=== PATIENT | female | born 1975 | race Caucasian/White ===

== ENCOUNTER 2024-05-28 09:38 | Emergency (ER) | payer SELFPAY ==
[2024-05-28] VITALS (8 sets, daily range): BP systolic 104–167; BP diastolic 45–82; PULSE 66–81; RESP 13; TEMP 36.7; O2SAT 95–97; BMI 34.7
--- NOTE | 2024-05-28 09:54 | CT_ITS ---
FINAL REPORT TECHNIQUE: Axial CT images were performed through the head. Coronal reformatted images were submitted. This study was performed with techniques to keep radiation doses as low as reasonably achievable (ALARA). Individualized dose reduction techniques using automated exposure control or adjustment of mA and/or kV according to the patient's size were employed. CLINICAL HISTORY: headache left side of head x 3 days COMPARISON: None FINDINGS: The ventricles are normal in size. There is no evidence of hemorrhage. There is no mass or edema identified. There is no abnormal extra-axial fluid seen. The sinuses are well aerated. IMPRESSION: No acute intracranial process. Reviewed, Interpreted and Dictated by Minh Bridges MD Transcribed by Loida Flores Authenticated and . [facility]
[2024-05-28] MEDS: ACETAMINOPHEN 1,000MG/100ML VIAL 1000 MG IV (10:02)
[2024-05-28] MEDS: FAMOTIDINE 20MG/2ML VIAL 20 MG IV (10:03)
[2024-05-28] MEDS: KETOROLAC 30MG/ML VIAL 15 MG IV (10:03)
[2024-05-28] MEDS: METHYLPREDNISOLONE SOD SUCC 125MG VIAL 125 MG IV (10:03)
[2024-05-28] MEDS: diphenhydrAMINE 50MG/ML VIAL 25 MG IV (10:03)
[2024-05-28] MEDS: LACTATED RINGERS 1000ML 1,000 ML 999 ML IV (10:04)
[2024-05-28 10:05] LABS: Basophils # 0.1 K/mm3 (0-0.2); Basophils % 0.6 % (0.1-2.0); Eosinophils # 0.4 K/mm3 (0.0-0.4); Eosinophils % 2.8 % (0.1-12.0); Hematocrit 47.4 % (37.0-47.0); Hemoglobin 14.9 g/dL (12.2-16.2); Lymphocytes # 3.2 K/mm3 (0.7-4.5); Lymphocytes % 24.2 % (10-50); Mean Corpuscular HGB Conc 31.4 g/dL (31.8-35.4); Mean Corpuscular Hemoglobin 29.7 pg (27.0-31.2); Mean Corpuscular Volume 94.7 fl (81-99); Monocytes # 0.5 K/mm3 (0.1-1.0); Monocytes % 3.5 % (1.7-9.3); Platelet Count 399 K/mm3 (142-424); Red Cell Distribution Width 14.9 % (11.5-17.5)
[2024-05-28 10:11] LABS: Albumin Level 4.2 g/dl (3.5-5.0); Chloride 100 mmol/L (98-107); Potassium 3.8 mmoL/L (3.5-5.1); Sodium 137 mmol/L (136-145)
[2024-05-28 10:13] LABS: Blood Urea Nitrogen 13 mg/dl (7-17); Creatinine Clearance Estimated 173 mL/min (50-200); Estimated Glomerular Filt Rate 106 ml/min (>60); GFR (African American) 128 ML/MIN (>60)
[2024-05-28 10:14] LABS: Alanine Aminotransferase 33 U/L (12-78); Albumin/Globulin Ratio 1.2 (1.1-1.8); Alkaline Phosphatase 125 U/L (38-126); Anion Gap 10.8 mEq/L (5-15); Aspartate Amino Transferase 30 U/L (14-36); Bilirubin,Total 0.3 mg/dl (0.2-1.3); Calcium 9.3 mg/dl (8.4-10.2); Carbon Dioxide 30 mmol/L (22.0-30.0); Globulin 3.5 g/dL (1.3-3.2); Glucose 98 mg/dl (74-100); Total Protein,Serum 7.7 g/dl (6.3-8.2)
[2024-05-28 10:26] LABS: Coronavirus 19, PCR Not Detected (NotDetected); Influenza A, PCR Not Detected (NotDetected); Influenza B, PCR Not Detected (NotDetected)
--- NOTE | 2024-05-28 10:27 | ED_ITS ---
Discharge Plan Disposition Patient Disposition: Home, Self-Care Condition: Good Referrals Follow up/Referrals: Nilam Klein APRN [Primary Care Provider] - See instructions Activity Restrictions/Add. Instructions Additional Instructions/Restrictions: You were evaluated in the emergency department today. Please follow-up closely with your primary care provider. Return to the emergency department for new or worsening symptoms. Clinical Impressions Clinical Impression: Migraine Stand Alone Forms Stand Alone Forms: Work/School Release Instructions Patient Instructions: DI for Migraine, DI for Headache Print Language Print Language: Martiniquais Discharge ED Provider: Tena Loco General Adult HPI General Chief complaint: Headache Stated complaint: stabbing pains in head Time Seen by Provider: 05/28/24 09:59 Mode of Arrival: Ambulatory Source of Information: Patient Limitations: No Limitations Description of Symptoms (Recalled from ER Triage Doc. by RN): pt presents to ED with c/o headache ongoing for three days. symptoms located on left side of head, pt reports pain stabbing in nature. pt reports hx of migraines but none recently. History of Present Illness HPI narrative: This patient is a 48-year-old female with a history of migraines, obesity, tobacco use presenting to the emergency department for evaluation with concern for headache. Patient reports that she has had a headache on the left side of her head for about 3 days now. She describes it as a sharp stabbing pain. She reports history of migraines but has not had 1 in 15 years. She used to have them on the right side of her head similar to this. She denies any fevers, chills, sore throat, cough, congestion, neck pain or stiffness, vision changes, numbness, tingling, unilateral weakness, or other concerns. Nothing seems make it better or worse Related Data Allergies Allergy/AdvReac Type Severity Reaction Status Date / Time Sulfa (Sulfonamide Allergy Anaphylaxis Verified 05/28/24 09:53 Antibiotics) [facility] Disclaimer: The information contained in this section may have been updated after the patient was seen, as this information can be updated by other users. Social History Smoking Status: Current every day smoker alcohol intake: never current occupational status: employed Travel in the last 8 weeks: None ROS Obtained: Yes All systems reviewed & no additional complaints except as documented Physical Exam General General appearance: alert and in no apparent distress Head Head exam: atraumatic and normocephalic Eye Eye exam: Present normal appearance, PERRL and EOMI ENT ENT exam: Present normal exam, normal oropharynx, mucous membranes moist and normal external ear exam Neck Neck exam: Present normal inspection, full ROM and trachea midline; Absent tenderness Chest Chest inspection: Present normal inspection and symmetric chest wall rise; Absent tenderness Respiratory Respiratory exam: Present normal lung sounds bilaterally; Absent respiratory distress, wheezes, stridor or accessory muscle use Cardiovascular Cardiovascular exam: Present regular rate and normal rhythm Abdominal Exam Abdominal exam: Present soft; Absent distention, tenderness or guarding Extremities Exam Extremities exam: Present normal inspection, full ROM and normal capillary refill; Absent tenderness or edema Back Exam Back exam: Present normal inspection and full ROM; Absent tenderness Neurological Exam Neurological exam: Present alert, oriented X3, CN II-XII intact and normal gait; Absent motor sensory deficit Psychiatric Psychiatric exam: Present normal affect and normal mood Skin Skin exam: Present warm and dry Medical Decision Making Medical Records Medical records reviewed: Yes I reviewed the patient's medical records. Screening: Per USPSTF and CDC recommendations, given the prevalence of disease in our region, it is our hospital?s policy to screen for HIV and viral Hepatitis for all patients aged 18 and over and those with ongoing risk factors. Jamar Inquiry Pt receiving controlled substance: No Vital Signs: 05/28/24 09:43 05/28/24 09:44 05/28/24 10:00 Temperature 98.1 F Temperature Source Oral Pulse Rate 81 76 Pulse Rate [Left Radial] 80 Respiratory Rate 13 Blood Pressure 167/82 H 141/79 H Blood Pressure [Right Arm] 167/82 H Blood Pressure Mean [Right Arm] 110 02 Sat by Pulse Oximetry 97 97 96 Oxygen Delivery Method Room Air Room Air Room Air 05/28/24 10:30 05/28/24 11:00 05/28/24 11:30 Temperature Temperature Source Pulse Rate 76 72 66 Pulse Rate [Left Radial] Respiratory Rate Blood Pressure 144/82 H 104/45 L 110/57 L Blood Pressure [Right Arm] Blood Pressure Mean [Right Arm] 02 Sat by Pulse Oximetry 96 95 95 Oxygen Delivery Method Room Air Room Air Room Air 05/28/24 12:00 Temperature Temperature Source Pulse Rate 76 Pulse Rate [Left Radial] Respiratory Rate Blood Pressure 128/76 Blood Pressure [Right Arm] Blood Pressure Mean [Right Arm] 02 Sat by Pulse Oximetry 95 Oxygen Delivery Method Room Air Lab Data Lab results reviewed: Yes I reviewed the patient's lab results. Lab Results 05/28/24 09:51: WBC 13.0 H, RBC 5.00, Hgb 14.9, Hct 47.4 H, MCV 94.7, MCH 29.7, MCHC 31.4 L, RDW 14.9, Plt Count 399, MPV 8.0, Neut % (Auto) 69.0, Lymph % (Auto) 24.2, [place] % (Auto) 3.5, Eos % (Auto) 2.8, Baso % (Auto) 0.6, Neut # (Auto) 9.0 H, Lymph # (Auto) 3.2, [place] # (Auto) 0.5, Eos # (Auto) 0.4, Baso # (Auto) 0.1, Sodium 137, Potassium 3.8, Chloride 100, Carbon Dioxide 30, Anion Gap 10.8, BUN 13, Creatinine 0.60, Estimated Creat Clear 173, Estimated GFR 106, Est GFR ( Amer) 128, Glucose 98, Calcium 9.3, Total Bilirubin 0.3, AST 30, ALT 33, Alkaline Phosphatase 125, Total Protein 7.7, Albumin 4.2, Globulin 3.5 H, Albumin/Globulin Ratio 1.2, HIV 1&2 Antibody Rapid Nonreactive 05/28/24 10:16: SARS-CoV-2 (PCR) Not detected, Influenza A Untype (PCR) Not detected, Influenza Type B (PCR) Not detected 05/28/24 09:51 05/28/24 09:51 Orders (Tests/Meds): ED MEDICATIONS Generic Name Dose Route Start Last Admin Trade Name Freq PRN Reason Stop Dose Admin Sodium Chloride 8 ml 05/28/24 09:54 Sodium Chloride 0.9% 10ml Vial IV 06/27/24 09:53 NEEDED PRN dilute pepcid Sodium Chloride 10 ml 05/28/24 09:54 Sodium Chloride 0.9% 10ml Flush Syringe IV 06/27/24 09:53 NEEDED PRN Maintain IV Site Discontinued Medications Generic Name Dose Route Start Last Admin Trade Name Freq PRN Reason Stop Dose Admin Acetaminophen 1,000 mg 05/28/24 09:54 05/28/24 10:02 Acetaminophen 1,000mg/100ml Vial IV 05/28/24 09:55 1,000 mg ONCE ONE Administration Diphenhydramine HCl 25 mg 05/28/24 09:54 05/28/24 10:03 Diphenhydramine 50mg/Ml Vial IV 05/28/24 09:55 25 mg ONCE ONE Administration Famotidine 20 mg 05/28/24 09:54 05/28/24 10:03 Famotidine 20mg/2ml Vial IV 05/28/24 09:55 20 mg ONCE ONE Administration Lactated Ringer's 1,000 mls @ 999 mls/hr 05/28/24 09:54 05/28/24 10:04 Lactated Ringer's 1000 Ml Bag IV 05/28/24 10:54 999 mls/hr .Q1H1M ONE Administration Ketorolac Tromethamine 15 mg 05/28/24 09:54 05/28/24 10:03 Ketorolac 30mg/Ml Vial IV 05/28/24 09:55 15 mg ONCE ONE Administration Methylprednisolone Sodium Succinate 125 mg 05/28/24 09:54 05/28/24 10:03 Methylprednisolone Sod Succ 125mg Vial IV 05/28/24 09:55 125 mg ONCE ONE Administration Metoclopramide HCl 10 mg 05/28/24 11:26 05/28/24 11:31 Metoclopramide Hcl 10mg/2ml Vial IVP 05/28/24 11:27 10 mg ONCE ONE Administration ORDERS Category Date Time Status CT head/brain wo con Stat Cat Scan 05/28/24 09:54 Completed Complete Blood Count Auto Diff Stat Lab 05/28/24 09:51 Completed Comprehensive Metabolic Panel Stat Lab 05/28/24 09:51 Completed HIV (1&2) Antibody Rapid Stat Lab 05/28/24 09:51 Completed Hep C Ab with Reflex to RNA Stat Lab 05/28/24 09:51 Received Rapid PCR Covid and Flu A/B Stat Lab 05/28/24 10:16 Completed Medical Decision Narrative: In summary, this patient is a 48-year-old female presenting to the Emergency Department for evaluation of headache. Differential diagnoses considered include but are not limited to migraine, tension headache, occipital neuralgia, intracranial hemorrhage, intracranial mass. Ruling out the most morbid conditions drove assessment. It should be noted patient's history includes migraines and tobacco use which are not at goal therapy. This complicates all aspects of care by increasing patient's risk for morbidity. On exam, the patient is sitting upright in the stretcher in no acute distress. She is neurologically intact with reassuring vital signs on cardiac telemetry. Based on the absence of other neurologic symptoms or focal neurologic deficits, I doubt space-occupying lesion. Workup included CBC, CMP, CT head without contrast. I also obtained viral swab. Patient was given a bolus of IV fluids as well as IV acetaminophen, Toradol, Pepcid, Benadryl, and methylprednisolone for symptomatic improvement. I independently interpreted CT scan prior to the radiologist read and noted no obvious large space-occupying lesion. Please see their read for final interpretation. Labs were obtained that demonstrated very mild leukocytosis without other acutely concerning abnormality. On reassessment, patient had some improvement after administration of interventions above but still had some headache. She was given IV Reglan which resolved her headache. Given resolution of symptoms and reassuring workup and exam, I feel that she is appropriate for discharge home with diagnosis of likely migraine. She was given strict return precautions and instructions for close outpatient follow-up. She was discharged after all questions were answered. Critical Care Critical Care Time Critical Care Time: No
[2024-05-28] MEDS: METOCLOPRAMIDE HCL 10MG/2ML VIAL 10 MG IVP (11:31)
[2024-05-28 12:55] LABS: HIV (1&2) Antibody Rapid NONREACTIVE (NONREACTIVE)
[2024-05-29 05:14] LABS: HCV Ab Non Reactive (Non Reactive)
== END 2024-05-28 13:09 | disposition home or self-care (01) ==
PROVIDERS: Emergency Provider Emergency Medicine; PCP Nurse Practitioner Family
DX: G43.909 Migraine, unspecified, not intractable, without status migrainosus (principal)
CPT/HCPCS: 70450; 80053; 85025; 86803; 87389; 87636; 96374; 96375; 99284; J0131; J1200; J1885; J2765; J2919; J7120; S0028